=== PATIENT | male | born 2000 | race Hispanic/Latino ===

== ENCOUNTER 2018-10-26 21:19 | Emergency (ER) | payer OTHER ==
[2018-10-26] MEDS ORDERED: BENZONATATE 100 MG CAPSULE PO ONE (22:51)
[2018-10-26] MEDS ORDERED: AZITHROMYCIN 250 MG TABLET PO ONE (22:51)
== END 2018-10-26 22:58 | disposition home or self-care (01) ==
LOC: EDH 21:19
DX: J20.9 Acute bronchitis, unspecified (principal); F32.9 Major depressive disorder, single episode, unspecified; F41.9 Anxiety disorder, unspecified
CPT/HCPCS: 71046

== ENCOUNTER 2024-01-26 13:29 | Emergency (ER) | payer SELFPAY ==
[~2024-01-26] VITALS: Ht 160 cm; Wt 74.8 kg
--- NOTE | 2024-01-26 13:37 | ERN ---
ED Note History of Present Illness Stated Complaint: SUICIDAL, LEFT ARM CUTTING Chief Complaint: Suicidal Ideation Time Seen by MD: 13:31 Dictation: PATIENT IS A 23-YEAR-OLD MALE HERE WITH HIS MOTHER WITH MULTIPLE SUPERFICIAL ABRASIONS TO HIS LEFT FOREARM ONSET 2 HOURS PRIOR TO ARRIVAL. PATIENT STATES I AM GOING THROUGH A LOT AND I FEEL LIKE I WANT TO BIKE CUTTING MY WRIST. MOTHER AND PATIENT BOTH STATE HE HAS A LONG HISTORY TO INCLUDE DEPRESSION BIPOLAR, HAS NOT BEEN ON THE MEDICATIONS FOR SEVERAL MONTHS AND GOES TO [facility]. PATIENT ALSO STATES HE IS A TYPE 2 DIABETIC HOWEVER STOPPED HIS METFORMIN 2-1/2 MONTHS AGO WHEN HE GOT LOCKED UP IN THE [facility]. Allergies: Coded Allergies: divalproex sodium (Unverified Allergy, Unknown, 01/26/24) Home Meds Active Scripts Metformin HCl (Metformin HCl) 1,000 Mg Tablet, 1 TAB PO BIDAC for 30 Days, #60 TAB 0 Refills Prov:G[facility] PRACTICE DIRECTOR 01/26/24 Past Medical History PSYCH History: anxiety, bipolar, depression RN Note Reviewed/Agreed w/PFSH: Yes Review of System Dictation CONSTITUTIONAL: NEGATIVE EXCEPT FOR HPI HEAD/FACE: NEGATIVE EXCEPT FOR HPI EENT: NEGATIVE EXCEPT FOR HPI RESPIRATORY: NEGATIVE EXCEPT FOR HPI GASTROINTESTINAL/ABDOMINAL: NEGATIVE EXCEPT FOR HPI GENITOURINARY: NEGATIVE EXCEPT FOR HPI MUSCULOSKELETAL: NEGATIVE EXCEPT FOR HPI INTEGUMENTARY: NEGATIVE EXCEPT FOR HPI SELF-INFLICTED ABRASIONS LEFT FOREARM NEUROLOGICAL/PSYCH: NEGATIVE EXCEPT FOR HPI SUICIDAL HEMATOLOGIC/LYMPHATIC: NEGATIVE EXCEPT FOR HPI ALL SYSTEMS NEGATIVE, EXCEPT NOTED ABOVE. 13 POINT REVIEW OF SYSTEMS ASSESSED AND ALL NEGATIVE EXCEPT FOR ABOVE. Initial Vital Sign VS Vital Signs Date Time Temp Pulse Resp B/P (MAP) Pulse Ox O2 Delivery O2 Flow Rate FiO2 01/26/24 13:34 98.8 112 20 124/83 99 01/26/24 15:02 Room Air* 0 21 Physical Exam Dictation VITAL SIGNS REVIEWED GENERAL APPEARANCE: ALERT, ORIENTED X 3,, WELL DEVELOPED, NOURISHED. FLAT AFFECT SUICIDAL HEAD AND FACE: NON-TRAUMATIC. EYES: PERRL, PINK CONJUNCTIVAS, EYELID NO TRAUMA, ANTERIOR CHAMBER WITH ARCUS SENILIS. EARS: PINNAS INTACT AND NO SIGNS OF TRAUMA OR ERYTHEMA EAR CANALS CLEAR AND NO DISCHARGE TM NO ERYTHEMA NOSE: NO DISCHARGE, NO BLEEDING. OROPHARYNX: MOUTH NORMAL, TONGUE PINK, PHARYNX CLEAR,NO ERYTHEMA, TONSILS NO EXUDATES, NO ABSCESSES NOTED, MUCOUS MEMBRANE MOIST NECK: SUPPLE, NON-TENDER, NO THYROMEGALY, NO MASSES, NO JVD, NO BRUITS BREAST:DEFERRED CHEST:NO TENDERNESS, NO CREPITUS, NO PARADOXICAL MOVEMENT, NO RETRACTIONS LUNGS:CLEAR, WELL-VENTILATED, SYMMETRIC, NO RALES, NO WHEEZING, NO RHONCHI, NO STRIDOR, GOOD BREATH SOUNDS BILATERALLY HEART: REGULAR RATE, REGULAR RHYTHM, NO MURMUR, NO GALLOPS VASCULAR: NO PERIPHERAL EDEMA, ABDOMEN: SOFT, POSITIVE BOWEL SOUNDS, NONDISTENDED, NO GUARDING, NONTENDER, NO REBOUND, NO MASSES NO HEPATOMEGALY, NO SPLENOMEGALY, NO VAUGHAN'S SIGN, NO HERNIAS. RECTAL: DEFERRED GENITAL: DEFERRED NEUROLOGICAL: NORMAL SPEECH, MOTOR FUNCTION INTACT, SENSORY FUNCTION INTACT MUSCULOSKELETAL: NECK NONTENDER, FULL RANGE OF MOTION, BACK NONTENDER, FULL RANGE OF MOTION, EXTREMITIES: NONTENDER, MULTIPLE SUPERFICIAL ABRASIONS TO LEFT FOREARM. MINIMAL BLEEDING NO REPAIR REQUIRED PATIENT STATES TETANUS SHOT IS UP TO DATE LYMPHATIC: DEFERRED Results (Laboratory/Radiology) Laboratory/Radiology Laboratory Tests Test 01/26/24 12:44 01/26/24 13:56 01/26/24 14:55 01/26/24 16:47 Urine Color LIGHT-YELLOW (YELLOW) Urine Appearance CLEAR (CLEAR) Urine pH 6.0 (5.0-8.0) Urine Specific [place] OVER (1.001-1.031) Urine Protein 20 mg/dL (NEGATIVE) H Urine Glucose (UA) >=1000 mg/dL (NEGATIVE) H Urine Ketones 100 mg/dL (NEGATIVE) H Urine Occult Blood NEGATIVE (NEGATIVE) Urine Nitrate NEGATIVE (NEGATIVE) Urine Bilirubin NEGATIVE mg/dL (NEGATIVE) Urine Urobilinogen 0.2 mg/dL (0.2-1.0) Urine Leukocyte Esterase 75 Eyal/uL (NEGATIVE) H Urine RBC 2-5 /HPF (0-1) H Urine WBC 6-10 /HPF (0-1) H Urine Squamous Epithelial Cells FEW /HPF (0-2) Urine Bacteria None /HPF (None Seen) Urine Opiates Screen NEGATIVE (NEGATIVE) Urine Barbiturates Screen NEGATIVE (NEGATIVE) Urine Phencyclidine Screen NEGATIVE (NEGATIVE) Urine Amphetamines Screen NEGATIVE (NEGATIVE) Urine Benzodiazepines Screen NEGATIVE (NEGATIVE) Urine Cocaine Screen NEGATIVE (NEGATIVE) Urine Marijuana (THC) Screen POSITIVE (NEGATIVE) H White Blood Count 8.1 K/uL (4.8-10.8) Red Blood Count 5.76 MIL/uL (4.50-6.20) Hemoglobin 16.7 g/dL (14.0-18.0) Hematocrit 47.4 % (42-54) Mean Corpuscular Volume 82.3 fL (79-99) Mean Corpuscular Hemoglobin 29.0 pg (27.0-33.0) Mean Corpuscular Hemoglobin Concent 35.2 g/dL (32.0-36.0) Red Cell Distribution Width 12.0 % (11.0-15.5) Platelet Count 305 K/uL (130-400) Mean Platelet Volume 9.7 fL (7.5-10.5) Immature Granulocyte % (Auto) 0.4 % (0-1) Neutrophils (%) (Auto) 71.7 % (40.0-77.0) Lymphocytes (%) (Auto) 23.1 % (21.0-51.0) Monocytes (%) (Auto) 3.6 % (3.0-13.0) Eosinophils (%) (Auto) 0.7 % (0.0-8.0) Basophils (%) (Auto) 0.5 % (0.0-5.0) Neutrophils # (Auto) 5.8 K/uL (1.8-7.7) Lymphocytes # (Auto) 1.9 K/uL (1.0-4.8) Monocytes # (Auto) 0.3 K/uL (0.1-1.0) Eosinophils # (Auto) 0.06 K/uL (0.00-0.70) Basophils # (Auto) 0.04 K/uL (0.00-0.20) Absolute Immature Granulocyte (auto 0.03 K/uL (0-1) Nucleated Red Blood Cells 0.0 % (0.0-0.19) Sodium Level 136 mmol/L (136-145) Potassium Level 3.8 mmol/L (3.5-5.1) Chloride Level 99 mmol/L (101-111) L Carbon Dioxide Level 25 mmol/L (21-32) Blood Urea Nitrogen 15 mg/dL (7-18) Creatinine 0.8 mg/dL (0.5-1.3) Glomerular Filtration Rate Calc 126 mL/min (>90) Random Glucose 381 mg/dL (70-105) H Total Calcium 9.2 mg/dL (8.5-10.1) Total Creatine Kinase 55 U/L (21-232) Salicylates Level < 2.8 mg/dL (2.8-20.0) L Acetaminophen Level < 1 mcg/mL (10-29) L Serum Alcohol 7 mg/dL (0-10) Whole Blood Glucose 420 MG/DL (70-110) *H 319 MG/DL (70-110) H Test 01/26/24 18:19 01/26/24 18:35 Whole Blood Glucose 229 MG/DL (70-110) H 182 MG/DL (70-110) H Labs Reviewed?: Yes ED Course ED Course Orders Procedure Category Date Status Time Drug Screen Urine LAB 01/26/24 Complete 13:33 Suicide Precautions CPOE 01/26/24 Transmitted 13:33 Cbc With Differential LAB 01/26/24 Complete 13:33 Alcohol, Blood LAB 01/26/24 Complete 13:33 Salicylate LAB 01/26/24 Complete 13:33 Acetaminophen LAB 01/26/24 Complete 13:33 Urinalysis Profile LAB 01/26/24 Complete 13:33 Creatine Kinase, Total LAB 01/26/24 Complete 13:33 Basic Metabolic Panel LAB 01/26/24 Complete 13:33 Neomy PHA 01/26/24 Complete Sulf/Bacitra/Polymyxin 14:00 Culture Urine MADELINE 01/26/24 In Process 14:06 Insulin Regular, PHA 01/26/24 Complete Human 3ml (Humulin R 15:00 0.9%Nacl 1000ml (Ns PHA 01/26/24 Complete 1000ml) 15:00 Insulin Regular, PHA 01/26/24 Complete Human 3ml (Humulin R 17:00 0.9%Nacl 1000ml (Ns PHA 01/26/24 Complete 1000ml) 17:00 Bedside Glucose CPOE 01/26/24 Transmitted Fingerstick 17:58 Current Medications Medications (Trade) Dose Ordered Sig/Terri Route PRN Reason Start Time Stop Time Status Last Admin Dose Admin Insulin Human Regular (humuLIN R 100 UNIT/ML 3ML) 8 unit ONCE ONCE IV 01/26/24 17:00 01/26/24 17:01 DC 01/26/24 17:21 Insulin Human Regular (humuLIN R 100 UNIT/ML 3ML) 12 unit ONCE ONCE IV 01/26/24 15:00 01/26/24 15:01 DC 01/26/24 14:58 Neomycin/ Polymyxin/ Bacitracin (Triple Antibiotic Ointment) 1 appl ONCE ONCE TP 01/26/24 14:00 01/26/24 14:01 DC 01/26/24 13:54 Sodium Chloride 1,000 ml @ 0 mls/hr ONCE ONCE IV 01/26/24 15:00 01/26/24 15:01 DC 01/26/24 15:00 Sodium Chloride 1,000 ml @ 0 mls/hr ONCE ONCE IV 01/26/24 17:00 01/26/24 17:01 DC 01/26/24 17:20 Vital Signs Date Time Temp Pulse Resp B/P (MAP) Pulse Ox O2 Delivery O2 Flow Rate FiO2 01/26/24 15:02 98.4 87 16 124/62 98 Room Air* 0 21 01/26/24 13:34 98.8 112 20 124/83 99 SIXTEEN 50, REPEAT BLOOD SUGAR AFTER FLUIDS AND 12 UNITS REGULAR INSULIN 319. WE WILL GIVE AN ADDITIONAL1 L NORMAL SALINE AND EIGHT MORE UNITS OF HUMULIN REGULAR INSULIN TO CONTROL BLOOD SUGAR. SEVENTEEN 30, PATIENT EVALUATED BY NNEKA AND DOES NOT MEET CRITERIA FOR INPATIENT TREATMENT. HE WILL BE FOLLOWED UP OUTPATIENT, HE WILL BE TREATED HERE ACUTELY FOR UNCONTROLLED DIABETES WE WILL BE PRESCRIBED METFORMIN WAS TAKEN IN THE PAST AND TOLD TO FOLLOW A DIABETIC DIET AND FOLLOW UP WITH [facility] OUTPATIENT. 8 30, PATIENT DOES NOT MEET CRITERIA FOR INPATIENT TREATMENT BLOOD SUGAR 229 AFTER TREATMENT WE WILL DISCHARGE PATIENT HOME WITH METFORMIN AND TOLD TO SEE HIS DOCTOR Medical Decision Making MDM MDM: DIFFERENTIAL DIAGNOSIS: SELF-HARM BEHAVIOR, SUICIDALITY, DEPRESSION/DRUG ABUSE/ELECTROLYTE IMBALANCE/DEHYDRATION/UNCONTROLLED DIABETES RATIONALE: TESTS CONSIDERED AND ORDERED SECONDARY TO SHARED DECISION MAKING INCLUDE: LABS PREVIOUS OUTSIDE RECORDS REVIEWED: OLD ER VISITS. REVIEWED RISK OF COMPLICATION AND/OR MORBIDITY OR MORTALITY OF PATIENT MANAGEMENT: NONE MEDICATIONS-PER MEDICATION RECONCILIATION SEE NURSE'S NOTES NEED FOR HOSPITALIZATION: PATIENT DOES NOT MEET CRITERIA FOR HOSPITALIZATION. DOES NOT MEET CRITERIA PERC [facility] WE WILL BE DISCHARGED HOME AFTER DIABETES MANAGED. NEED FOR EMERGENCY MAJOR/MINOR SURGERY: NO THERE ARE NO SOCIAL CONCERNS WITH THIS PATIENT. PRESCRIPTION DRUG MANAGEMENT METFORMIN PRESCRIPTIONS WILL INCLUDE SYMPTOMATIC CARE PATIENT'S PRIOR EXTERNAL MEDICAL RECORDS FROM OTHER ER VISITS WERE REVIEWED BY ME INDICATED. PRIOR TESTING AND RESULTS FROM PREVIOUS VISITS WERE REVIEWED. PRIOR TESTS WERE TAKEN INTO ACCOUNT WITH MEDICAL DECISION MAKING AND RESOURCE UTILIZATION, INDEPENDENT HISTORIAN/HISTORIANS WERE USED TO OBTAIN COMPLETE MEDICAL HISTORY. I INDEPENDENTLY INTERPRETED THE TEST THAT WERE PERFORMED, RESULTS WERE REVIEWED BY ME AND CONSIDERED FINDINGS ON RADIOLOGY IF ORDERED. MEDICAL MANAGEMENT AND EXAMINATION INTERPRETATION DISCUSSIONS WERE HAD BY ME WITH OTHER QUALIFIED HEALTHCARE PROFESSIONALS INDICATED FOR THE PATIENT'S CARE. DX & DISP Disposition: Discharge Departure Impression: Primary Impression: Self-harming behaviour Additional Impressions: Verbalizes suicidal thoughts, Uncontrolled diabetes mellitus, Dehydration, Marijuana use, Medically noncompliant Condition: Stable Scripts Metformin HCl (Metformin HCl) 1,000 Mg Tablet 1 TAB PO BIDAC for 30 Days, #60 TAB 0 Refills Prov: LUCI FRANKS NP 01/26/24 Additional Instructions: FOLLOW-UP WITH PRIMARY CARE PROVIDER IN 1 TO 2 DAYS. TAKE MEDICATIONS DIRECTED HERE IN THE EMERGENCY ROOM. OKAY TO CONTINUE HOME MEDICATIONS UNLESS OTHERWISE DISCUSSED DURING YOUR VISIT IN THE EMERGENCY ROOM TODAY. RETURN TO YOUR NEAREST EMERGENCY ROOM IF SYMPTOMS WORSEN OR IF THERE IS NO IMPROVEMENT. CALL 911 IF YOU NEED IMMEDIATE ASSISTANCE. TAKE TYLENOL OR MOTRIN [id number] NEEDED AND IF NO CONTRAINDICATIONS ARE PRESENT. INCREASE ORAL HYDRATION. A WOUND CULTURE OR URINE CULTURE WAS ORDERED HERE IN THE EMERGENCY ROOM DEPARTMENT PLEASE FOLLOW-UP WITH PRIMARY CARE PROVIDER AND ADVISE THEM TO GET REPEAT PORTS FROM OUR FACILITY. IF YOU HAD ANY KENDY WRAP/SPLINTS THAT WERE APPLIED HERE, PLEASE DO NOT REMOVE THEM UNTIL YOU SEE YOUR PRIMARY CARE OR SPECIALTY. FOLLOW UP WITH TR[facility] DIRECTED. APPLY TRIPLE ANTIBIOTIC OINTMENT/[id number] TIMES A DAY FOR FIVE DAYS TO THE ABRASIONS ON YOUR ARMS. TAKE METFORMIN DIRECTED TWICE A DAY AND SEE YOUR PRIMARY CARE DOCTOR FOR FOLLOW UP Referrals: SELF,REFERRAL (PCP) I have reviewed the case, and I agree with, Diagnosis and Plan LUCI FRANKS NP Jan 26, 2024 13:37 FRANCISCA WISDOM DO Jan 26, 2024 18:53
[2024-01-26] MEDS: NEOMY SULF/BACITRA/POLYMYXIN B 1 EACH PACKET TP ONE (13:54)
[2024-01-26 13:59] LABS: AMPHET/METH SCREEN,URINE NEGATIVE (NEGATIVE); BARBITURATE SCREEN, URINE NEGATIVE (NEGATIVE); BENZODIAZEPINES SCREEN,URINE NEGATIVE (NEGATIVE); CANNABINOID SCREEN,URINE POSITIVE (NEGATIVE); COCAINE SCREEN,URINE NEGATIVE (NEGATIVE); OPIATE SCREEN,URINE NEGATIVE (NEGATIVE); PHENCYCLIDINE SCREEN,URINE NEGATIVE (NEGATIVE)
[2024-01-26 14:02] LABS: APPEARANCE,URINE CLEAR (CLEAR); BILIRUBIN,URINE NEGATIVE (NEGATIVE); COLOR,URINE LIGHT-YELLOW (YELLOW); GLUCOSE, URINE (UA) >=1000 mg/dL (NEGATIVE); KETONES,URINE 100 mg/dL (NEGATIVE); LEUKOCYTE ESTERASE ,URINE 75 Leu/uL (NEGATIVE); NITRATE,URINE NEGATIVE (NEGATIVE); OCCULT BLOOD,URINE NEGATIVE (NEGATIVE); PROTEIN,URINE 20 mg/dL (NEGATIVE); UROBILINOGEN,URINE 0.2 mg/dL (0.2-1.0)
[2024-01-26 14:04] LABS: BASOPHILS # (AUTO) 0.04 K/uL (0.00-0.20); BASOPHILS % (AUTO) 0.5 % (0.0-5.0); EOSINOPHILS # (AUTO) 0.06 K/uL (0.00-0.70); EOSINOPHILS % (AUTO) 0.7 % (0.0-8.0); HEMATOCRIT 47.4 % (42-54); IMMATURE GRANULOCYTE ABSOLUTE 0.03 K/uL (0-1); LYMPHOCYTES # (AUTO) 1.9 K/uL (1.0-4.8); LYMPHOCYTES % (AUTO) 23.1 % (21.0-51.0); MEAN CORPUSCULAR HGB CONC 35.2 g/dL (32.0-36.0); MEAN CORPUSCULAR VOLUME 82.3 fL (79-99); MONOCYTES # (AUTO) 0.3 K/uL (0.1-1.0); MONOCYTES % (AUTO) 3.6 % (3.0-13.0); NEUTROPHILS # (AUTO) 5.8 K/uL (1.8-7.7); NEUTROPHILS % (AUTO) 71.7 % (40.0-77.0); PLATELET COUNT (AUTO) 305 K/uL (130-400); RED BLOOD CELL COUNT(AUTO) 5.76 MIL/uL (4.50-6.20); WHITE BLOOD COUNT (AUTO) 8.1 K/uL (4.8-10.8)
[2024-01-26 14:06] LABS: ADD UA MICROSCOPIC YES
[2024-01-26 14:09] LABS: CARBON DIOXIDE 25 mmol/L (21-32); CHLORIDE 99 mmol/L (101-111); CREATININE 0.8 mg/dL (0.5-1.3); GLOMERULAR FILTR. RATE CALC 126 mL/min (>90); GLUCOSE,RANDOM 381 mg/dL (70-105); POTASSIUM 3.8 mmol/L (3.5-5.1); SODIUM SERUM 136 mmol/L (136-145); UREA NITROGEN, BLOOD 15 mg/dL (7-18)
[2024-01-26 14:10] LABS: SQUAMOUS EPITHELIAL CELL,UR FEW /HPF (0-2)
[2024-01-26 14:14] LABS: ALCOHOL, BLOOD 7 mg/dL (0-10); CREATINE KINASE, TOTAL 55 U/L (21-232)
[2024-01-26 14:29] LABS: ACETAMINOPHEN < 1 mcg/mL (10-29); SALICYLATE < 2.8 mg/dL (2.8-20.0)
[2024-01-26] MEDS: INSULIN humuLIN R 100 UNIT/ML 3ML IV ONE ×2 (14:58→17:21)
[2024-01-26] MEDS: 0.9%NACL 1000ML 1,000 ML IV ONE ×2 (15:00→17:20)
--- NOTE | 2024-01-26 15:02 | NUR ---
SPOKE TO [facility], SHE WILL NOTIFY HAZMAT TECHNICIANDIRECTOR OF ENTERPRISE APPLICATIONS TO COME AND COMPLETE ASSESSMENT.
--- NOTE | 2024-01-26 16:01 | NUR ---
[place] [facility]ICAL SCREENER AT BEDSIDE
[2024-01-26] MEDS ORDERED: METF-446 PO (18:30)
[2024-01-26 18:58] VITALS: BP 122/65; PULSE 87; RESP 16; TEMP 98.4; O2SAT 99
== END 2024-01-26 19:01 | disposition home or self-care (01) ==
LOC: EDH 13:29
DX: S50.812A Abrasion of left forearm, initial encounter (principal); R45.851 Suicidal ideations; E11.65 Type 2 diabetes mellitus with hyperglycemia; E86.0 Dehydration; F31.9 Bipolar disorder, unspecified; F12.90 Cannabis use, unspecified, uncomplicated; Z79.84 Long term (current) use of oral hypoglycemic drugs; Z91.199 Patient's noncompliance with other medical treatment and regimen due to unspecified reason; X78.8XXA Intentional self-harm by other sharp object, initial encounter; Y93.89 Activity, other specified; Y92.89 Other specified places as the place of occurrence of the external cause; Y99.8 Other external cause status
CPT/HCPCS: 99284; 96374; 96361; 82550; 80048; 80305; 85025; 87086; 82948 ×4; 36415; 96376; 81001; J1815 ×2; G0481; J7030 ×2

== ENCOUNTER 2024-01-27 02:21 | Emergency (ER) | payer SELFPAY ==
[~2024-01-27] VITALS: Ht 160 cm; Wt 74.8 kg
[~2024-01-27 02:21] MED LIST: METF-446 PO
--- NOTE | 2024-01-27 02:53 | ERN ---
ED Note History of Present Illness Stated Complaint: SECTION 26 DUE TO S/I, SELF HARM BEHAVIOR Chief Complaint: Psych Evaluation Time Seen by MD: 02:38 Dictation: This is a 23-year-old male who was brought into the emergency room yesterday with complaints of suicidal ideations by family members. He was evaluated and noted to be very hyperglycemic and he was given IV fluids and insulin with improvement. Apparently patient has stopped taking his metformin 2-1/2 months ago when he was locked up in detention. He was cleared by [facility] and felt that he did not qualify for inpatient treatment and he was discharged to home with metformin to follow up with his doctors. He was brought back in by police department on section 26 due to severe suicidal ideations and self- harming behavior. Patient stated that who is going through a lot of hard times and his close friend by suicide. He cut himself with a razor blade throughout his left upper extremity neck and face to release pain. He stated that this was a razor blade old detention home trich. He reports feeling anxious and has suicidal ideations. Yesterday but prior to discharge had urine drug screen that was positive for THC but otherwise hyperglycemia was the only major thing. Temperature 97.9 pulse 107 respirations 20 blood pressure 130/85 with a pulse oximetry of 95% on room air His chronic medical problems include anxiety depression bipolar disorder diabetes mellitus type 2, polysubstance abuse including smoking cigarettes daily, cocaine and marijuana use. He is noncompliant with his metformin and lifestyle modifications Allergies: Coded Allergies: divalproex sodium (Unverified Allergy, Unknown, 01/26/24) Home Meds Active Scripts Metformin HCl (Metformin HCl) 1,000 Mg Tablet, 1 TAB PO BIDAC for 30 Days, #60 TAB 0 Refills Prov:LUCI FRANKS NP 01/26/24 Past Medical History Past Medical History: Anxiety, Bipolar, Depression, Diabetes-Type II Surgical History: Other Surgical History Other: BMT Family History: Negative Social History: Smokers, Drugs, ETOH RN Note Reviewed/Agreed w/PFSH: Yes Review of System Dictation Constitutional: Negative for fever,chills, and weight loss Eyes: Negative for injury, pain,redness, and discharge ENT: Negative for injury,pain or swelling Cardiovascular: Negative for chest pain, palpitations, and edema Respiratory: Negative for shortness of breath, cough, and wheezing, Abdomen/GI: Negative for abdominal pain, nausea, vomiting, diarrhea, and cons tipation Back: Negative for injury and pain : Negative for injury, bleeding and discharge MS/Extremity: Negative for injury and deformity Skin: Negative for rash, and discoloration Neuro: Negative for headache, weakness, numbness, tingling, and seizure Psych: Negative for suicide ideation, homicidal ideation, and hallucinations Initial Vital Sign VS Vital Signs Date Time Temp Pulse Resp B/P (MAP) Pulse Ox O2 Delivery O2 Flow Rate FiO2 01/27/24 02:22 97.9 107 20 130/85 100 Room Air 01/27/24 04:24 0 21 Physical Exam Dictation General: awake, alert, NAD Head/Face: Normocephalic, atraumatic Eyes: PERRL, EOMI, vision at baseline ENT: oral cavity clear, TMs clear, no signs of infection Neck: Trachea midline, supple, no nuchal rigidity Cardiovascular: RRR, normal S1/S2, No MRGs, no JVD Respiratory: CTAB, no respiratory distress, No rales or wheezes Abdomen: Soft, non-tender, non-distended, normal bowel sounds, no guarding or r ebound. Skin: Warm, dry, normal turgor, no rash MS/Extremity: Pulses equal, no cyanosis, neurovascular intact, FROM Neuro: COAx4, GCS 15, strength 5/5, CN 2-12 intact, normal cerebellar exam, normal gait, Psych: Normal behavior, mood, and affect normal Extremities-trace edema without any palpable cords, Homans sign is negative Results (Laboratory/Radiology) Laboratory/Radiology Laboratory Tests Test 01/27/24 02:45 01/27/24 02:50 01/27/24 05:16 01/27/24 06:03 White Blood Count 7.5 K/uL (4.8-10.8) Red Blood Count 4.95 MIL/uL (4.50-6.20) Hemoglobin 14.5 g/dL (14.0-18.0) Hematocrit 40.8 % (42-54) L Mean Corpuscular Volume 82.4 fL (79-99) Mean Corpuscular Hemoglobin 29.3 pg (27.0-33.0) Mean Corpuscular Hemoglobin Concent 35.5 g/dL (32.0-36.0) Red Cell Distribution Width 12.3 % (11.0-15.5) Platelet Count 272 K/uL (130-400) Mean Platelet Volume 9.7 fL (7.5-10.5) Immature Granulocyte % (Auto) 0.3 % (0-1) Neutrophils (%) (Auto) 55.9 % (40.0-77.0) Lymphocytes (%) (Auto) 37.7 % (21.0-51.0) Monocytes (%) (Auto) 5.0 % (3.0-13.0) Eosinophils (%) (Auto) 0.7 % (0.0-8.0) Basophils (%) (Auto) 0.4 % (0.0-5.0) Neutrophils # (Auto) 4.2 K/uL (1.8-7.7) Lymphocytes # (Auto) 2.8 K/uL (1.0-4.8) Monocytes # (Auto) 0.4 K/uL (0.1-1.0) Eosinophils # (Auto) 0.05 K/uL (0.00-0.70) Basophils # (Auto) 0.03 K/uL (0.00-0.20) Absolute Immature Granulocyte (auto 0.02 K/uL (0-1) Nucleated Red Blood Cells 0.0 % (0.0-0.19) Sodium Level 140 mmol/L (136-145) Potassium Level 3.6 mmol/L (3.5-5.1) Chloride Level 104 mmol/L (101-111) Carbon Dioxide Level 28 mmol/L (21-32) Blood Urea Nitrogen 14 mg/dL (7-18) Creatinine 0.8 mg/dL (0.5-1.3) Glomerular Filtration Rate Calc 126 mL/min (>90) Random Glucose 421 mg/dL (70-105) *H Total Calcium 8.7 mg/dL (8.5-10.1) Salicylates Level < 2.8 mg/dL (2.8-20.0) L Acetaminophen Level 25 mcg/mL (10-29) # Serum Alcohol < 3 mg/dL (0-10) Urine Color LIGHT-YELLOW (YELLOW) Urine Appearance CLEAR (CLEAR) Urine pH 5.5 (5.0-8.0) Urine Specific [place] 1.047 (1.001-1.031) Urine Protein NEGATIVE mg/dL (NEGATIVE) Urine Glucose (UA) >=1000 mg/dL (NEGATIVE) H Urine Ketones NEGATIVE mg/dL (NEGATIVE) Urine Occult Blood +- (TRACE) (NEGATIVE) H Urine Nitrate NEGATIVE (NEGATIVE) Urine Bilirubin NEGATIVE mg/dL (NEGATIVE) Urine Urobilinogen 0.2 mg/dL (0.2-1.0) Urine Leukocyte Esterase 500 Eyal/uL (NEGATIVE) H Urine RBC 11-25 /HPF (0-1) H Urine WBC 26-50 /HPF (0-1) H Urine Squamous Epithelial Cells FEW /HPF (0-2) Urine Bacteria None /HPF (None Seen) Urine Opiates Screen NEGATIVE (NEGATIVE) Urine Barbiturates Screen NEGATIVE (NEGATIVE) Urine Phencyclidine Screen NEGATIVE (NEGATIVE) Urine Amphetamines Screen NEGATIVE (NEGATIVE) Urine Benzodiazepines Screen NEGATIVE (NEGATIVE) Urine Cocaine Screen NEGATIVE (NEGATIVE) Urine Marijuana (THC) Screen POSITIVE (NEGATIVE) H Whole Blood Glucose 369 MG/DL (70-110) #H 154 MG/DL (70-110) #H Labs Reviewed?: Yes ED Course ED Course Orders Procedure Category Date Status Time Cbc With Differential LAB 01/27/24 Complete 02:25 Basic Metabolic Panel LAB 01/27/24 Complete 02:25 Alcohol, Blood LAB 01/27/24 Complete 02:25 Acetaminophen LAB 01/27/24 Complete 02:25 Salicylate LAB 01/27/24 Complete 02:25 Urinalysis Profile LAB 01/27/24 Complete 02:25 Drug Screen Urine LAB 01/27/24 Complete 02:25 0.9%Nacl 1000ml (Ns PHA 01/27/24 Complete 1000ml) 04:00 Ceftriaxone 1g Vial PHA 01/27/24 Complete (Rocephine 1g Inj) 04:00 Insulin Regular, PHA 01/27/24 Complete Human 3ml (Humulin R 05:30 0.9%Nacl 1000ml (Ns PHA 01/27/24 Complete 1000ml) 05:30 Current Medications Medications (Trade) Dose Ordered Sig/Terri Route PRN Reason Start Time Stop Time Status Last Admin Dose Admin Ceftriaxone Sodium (ROCEphine 1G INJ) 1 gm ONCE ONCE IVPB 01/27/24 04:00 01/27/24 04:01 DC 01/27/24 03:51 Insulin Human Regular (humuLIN R 100 UNIT/ML 3ML) 10 unit ONCE ONCE IV 01/27/24 05:30 01/27/24 05:31 DC 01/27/24 05:28 Sodium Chloride 1,000 ml @ 0 mls/hr ONCE ONCE IV 01/27/24 04:00 01/27/24 04:01 DC 01/27/24 03:51 Sodium Chloride 1,000 ml @ 0 mls/hr Q0M ONCE IV 01/27/24 05:30 01/27/24 05:31 DC 01/27/24 05:27 Vital Signs Date Time Temp Pulse Resp B/P (MAP) Pulse Ox O2 Delivery O2 Flow Rate FiO2 01/27/24 08:26 98.4 90 18 126/92 99 Room Air* 0 21 01/27/24 04:24 88 18 128/74 98 Room Air* 0 21 01/27/24 02:22 97.9 107 20 130/85 100 Room Air We will perform diagnostic labs, advanced imaging and administer medications according to the patient's complaint. Once the results are available, will review and personally interpreted the labs to rule out any acute life- threatening emergency the trach require immediate intervention and treatment. I will then re-evaluate the patient after treatment and diagnostic exams have return to determine whether the patient requires any further testing, can safely be discharged home or need further admission to hospital for additional treatment and evaluation. Labs reviewed CBC within normal limits BNP 7 showed a sugar of 421. Urinalysis was significant for very high leuko esterase and too numerous to count white cells and RBCs. Patient has been initiated on IV fluids. Optimize glycemic control. Empiric antibiotic therapy was also initiated. 4:59 a.m. patient is resting comfortably Medical Decision Making MDM MDM: DIFFERENTIAL DIAGNOSIS: SUICIDAL IDEATION, PSYCHIATRIC ILLNESS, RATIONALE: TESTS CONSIDERED AND ORDERED SECONDARY TO SHARED DECISION MAKING INCLUDE: PREVIOUS OUTSIDE RECORDS REVIEWED: OLD ER VISITS. RISK OF COMPLICATION AND/OR MORBIDITY OR MORTALITY OF PATIENT MANAGEMENT: NONE MEDICATIONS-PER MEDICATION RECONCILIATION NEED FOR HOSPITALIZATION: PATIENT DOES MEET CRITERIA FOR HOSPITALIZATION. NEED FOR EMERGENCY MAJOR/MINOR SURGERY: NO THERE ARE NO SOCIAL CONCERNS WITH THIS PATIENT. PRESCRIPTION DRUG MANAGEMENT PRESCRIPTIONS WILL INCLUDE SYMPTOMATIC CARE PATIENT'S PRIOR EXTERNAL MEDICAL RECORDS FROM OTHER ER VISITS WERE REVIEWED BY ME INDICATED. PRIOR TESTING AND RESULTS FROM PREVIOUS VISITS WERE REVIEWED. PRIOR TESTS WERE TAKEN INTO ACCOUNT WITH MEDICAL DECISION MAKING AND RESOURCE UTILIZATION, INDEPENDENT HISTORIAN/HISTORIANS WERE USED TO OBTAIN COMPLETE MEDICAL HISTORY. I INDEPENDENTLY INTERPRETED THE TEST THAT WERE PERFORMED, RESULTS WERE REVIEWED BY ME AND CONSIDERED FINDINGS ON RADIOLOGY IF ORDERED. MEDICAL MANAGEMENT AND EXAMINATION INTERPRETATION DISCUSSIONS WERE HAD BY ME WITH OTHER QUALIFIED HEALTHCARE PROFESSIONALS INDICATED FOR THE PATIENT'S CARE. PATIENT WILL BE DISCHARGED AND TRANSFERRED TO [facility] UNDER THE CARE OF . Problem List Problem List: (1) Self-harming behaviour (2) Verbalizes suicidal thoughts (3) Marijuana use (4) Medically noncompliant (5) Uncontrolled diabetes mellitus (6) Acute cystitis (7) Involuntary commitment DX & DISP Disposition: Discharge Departure Impression: Primary Impression: Self-harming behaviour Additional Impressions: Verbalizes suicidal thoughts, Marijuana use, Uncontrolled diabetes mellitus, Medically noncompliant, Involuntary commitme nt, Acute cystitis Condition: Stable Referrals: SELF,REFERRAL (PCP) Time of Disposition: 10:32 ALISHA LOCKE MD Jan 27, 2024 02:53 FLEX SIFUENTES MD Jan 27, 2024 10:33
[2024-01-27 02:55] LABS: BASOPHILS # (AUTO) 0.03 K/uL (0.00-0.20); BASOPHILS % (AUTO) 0.4 % (0.0-5.0); EOSINOPHILS # (AUTO) 0.05 K/uL (0.00-0.70); EOSINOPHILS % (AUTO) 0.7 % (0.0-8.0); HEMATOCRIT 40.8 % (42-54); IMMATURE GRANULOCYTE ABSOLUTE 0.02 K/uL (0-1); LYMPHOCYTES # (AUTO) 2.8 K/uL (1.0-4.8); LYMPHOCYTES % (AUTO) 37.7 % (21.0-51.0); MEAN CORPUSCULAR HEMOGLOBIN 29.3 pg (27.0-33.0); MEAN CORPUSCULAR HGB CONC 35.5 g/dL (32.0-36.0); MEAN CORPUSCULAR VOLUME 82.4 fL (79-99); MONOCYTES # (AUTO) 0.4 K/uL (0.1-1.0); NEUTROPHILS # (AUTO) 4.2 K/uL (1.8-7.7); NEUTROPHILS % (AUTO) 55.9 % (40.0-77.0); PLATELET COUNT (AUTO) 272 K/uL (130-400); RED BLOOD CELL COUNT(AUTO) 4.95 MIL/uL (4.50-6.20); RED CELL DISTRIBUTION WIDTH 12.3 % (11.0-15.5); WHITE BLOOD COUNT (AUTO) 7.5 K/uL (4.8-10.8)
[2024-01-27 03:06] LABS: APPEARANCE,URINE CLEAR (CLEAR); BILIRUBIN,URINE NEGATIVE (NEGATIVE); COLOR,URINE LIGHT-YELLOW (YELLOW); GLUCOSE, URINE (UA) >=1000 mg/dL (NEGATIVE); KETONES,URINE NEGATIVE (NEGATIVE); LEUKOCYTE ESTERASE ,URINE 500 Leu/uL (NEGATIVE); NITRATE,URINE NEGATIVE (NEGATIVE); PH,URINE 5.5 (5.0-8.0); PROTEIN,URINE NEGATIVE (NEGATIVE); UROBILINOGEN,URINE 0.2 mg/dL (0.2-1.0)
[2024-01-27 03:07] LABS: ADD UA MICROSCOPIC YES
[2024-01-27 03:08] LABS: ACETAMINOPHEN 25 mcg/mL (10-29); ALCOHOL, BLOOD < 3 mg/dL (0-10); CARBON DIOXIDE 28 mmol/L (21-32); CHLORIDE 104 mmol/L (101-111); CREATININE 0.8 mg/dL (0.5-1.3); GLOMERULAR FILTR. RATE CALC 126 mL/min (>90); POTASSIUM 3.6 mmol/L (3.5-5.1); SODIUM SERUM 140 mmol/L (136-145); UREA NITROGEN, BLOOD 14 mg/dL (7-18)
[2024-01-27 03:08] LABS: SQUAMOUS EPITHELIAL CELL,UR FEW /HPF (0-2); WBC,URINE 26-50 /HPF (0-1)
[2024-01-27 03:09] LABS: AMPHET/METH SCREEN,URINE NEGATIVE (NEGATIVE); BARBITURATE SCREEN, URINE NEGATIVE (NEGATIVE); BENZODIAZEPINES SCREEN,URINE NEGATIVE (NEGATIVE); CANNABINOID SCREEN,URINE POSITIVE (NEGATIVE); COCAINE SCREEN,URINE NEGATIVE (NEGATIVE); OPIATE SCREEN,URINE NEGATIVE (NEGATIVE); PHENCYCLIDINE SCREEN,URINE NEGATIVE (NEGATIVE)
[2024-01-27 03:26] LABS: GLUCOSE,RANDOM 421 mg/dL (70-105)
[2024-01-27 03:27] LABS: SALICYLATE < 2.8 mg/dL (2.8-20.0)
[2024-01-27] MEDS: 0.9%NACL 1000ML 1,000 ML IV ONE ×2 (03:51→05:27)
[2024-01-27] MEDS: cefTRIAXone 1G VIAL IVPB ONE (03:51)
[2024-01-27] MEDS: INSULIN humuLIN R 100 UNIT/ML 3ML IV ONE (05:28)
--- NOTE | 2024-01-27 06:17 | NUR ---
[place] [facility] CRISIS LINE CALLED AT THIS TIME. WAITING ON A SCREENER.
--- NOTE | 2024-01-27 08:29 | NUR ---
TROPICAL SCREENER AT BEDSIDE.
--- NOTE | 2024-01-27 09:00 | NUR ---
PER MAGNUS SALEH, PT MEETS CRITERIA FOR ADMISSION, WILL CALL BACK ONCE PT HAS PLACEMENT.
--- NOTE | 2024-01-27 10:39 | NUR ---
GAVE REPORT TO HENRY, NURSE AT [facility] IN REGARDS TO PT.
[2024-01-27 10:53] VITALS: BP 122/88; PULSE 88; RESP 18; TEMP 98.3; O2SAT 99
== END 2024-01-27 10:52 ==
LOC: EDH 02:21
DX: R45.851 Suicidal ideations (principal); E11.65 Type 2 diabetes mellitus with hyperglycemia; N30.00 Acute cystitis without hematuria; F17.200 Nicotine dependence, unspecified, uncomplicated; F31.9 Bipolar disorder, unspecified; Z91.199 Patient's noncompliance with other medical treatment and regimen due to unspecified reason; Z94.81 Bone marrow transplant status
CPT/HCPCS: 99285; 96374; 96375; 80048; 80305; 85025; 82948 ×2; 36415; 81001; J1815; G0481; J7030 ×2; J0696

== ENCOUNTER 2024-09-15 21:10 | Emergency (ER) | payer SELFPAY ==
[~2024-09-15] VITALS: Ht 160 cm; Wt 81.6 kg
--- NOTE | 2024-09-15 21:24 | NUR ---
PATIENT BELONGINGS AND WEAPONS COLLECTED BY SECURITY, PATIENT IN PAPER GOWN AND SHORTS, PATIENT VALUABLE LIST ON CHART.
--- NOTE | 2024-09-15 21:24 | NUR ---
TRIAGE EDIT TO CORRECT WEAPON FIELD
--- NOTE | 2024-09-15 21:41 | NUR ---
POISON CONTROL CONTACTED, SPOKE WITH FLORENCIO. RECOMMENDING CBC, BMP, TOXICOLOGY SCREEN, PO FLUIDS, PSYCHIATRIC EVALUATION. MAY TREAT NAUSEA WITH ANTIEMETICS. Addendum: 09/15/24 at 2143 by ABDIEL CASE # [id number]
[2024-09-15 21:42] LABS: AMPHET/METH SCREEN,URINE NEGATIVE (NEGATIVE); BARBITURATE SCREEN, URINE NEGATIVE (NEGATIVE); CANNABINOID SCREEN,URINE POSITIVE (NEGATIVE); COCAINE SCREEN,URINE POSITIVE (NEGATIVE)
[2024-09-15 21:46] LABS: IMMATURE GRANULOCYTE ABSOLUTE 0.03 K/uL (0-1); NUCLEATED RED BLOOD CELLS 0.0 % (0.0-0.19); PLATELET COUNT (AUTO) 335 K/uL (130-400); RED BLOOD CELL COUNT(AUTO) 5.50 MIL/uL (4.50-6.20); RED CELL DISTRIBUTION WIDTH 13.1 % (11.0-15.5); WHITE BLOOD COUNT (AUTO) 8.8 K/uL (4.8-10.8)
[2024-09-15 21:55] LABS: CREATININE 1.2 mg/dL (0.5-1.3); GLOMERULAR FILTR. RATE CALC 86 mL/min (>90); GLUCOSE,RANDOM 239 mg/dL (70-105); SODIUM SERUM 144 mmol/L (136-145); UREA NITROGEN, BLOOD 9 mg/dL (7-18)
[2024-09-15 22:00] LABS: ALCOHOL, BLOOD < 3 mg/dL (0-10)
--- NOTE | 2024-09-15 22:00 | NUR ---
patient provided juice, jello and applesauce, no burning to throat, no difficulty swallowing noted
--- NOTE | 2024-09-15 22:22 | NUR ---
NNEKA STEPHENSON CONTACTED TO INITIATE SCREENING
--- NOTE | 2024-09-15 23:21 | NUR ---
SCREENER AT BEDSIDE
--- NOTE | 2024-09-16 02:00 | NUR ---
patient provided warm meal
--- NOTE | 2024-09-16 02:02 | NUR ---
SPOKE WITH HUAN SERVICE DISPATCHER AT [facility]. REQUESTING WE COVER HIS POTASSIUM (3.3) AND BRING HIS BLOOD GLUCOSE TO BELOW 200. GARRICK HAAS MADE AWARE AND WILL PLACE ORDERS.
--- NOTE | 2024-09-16 02:24 | NUR ---
[facility] [place] SCREENER ADVISES PATIENT HAS BEEN ACCEPTED TO [facility]. TRANSPORTATION BY [facility] OFFICER AFTER 7 AM
[2024-09-16] MEDS: 0.9%NACL 1000ML 1,000 ML IV ONE (02:34)
--- NOTE | 2024-09-16 02:41 | NUR ---
ACCEPTANCE SPOKE WITH HUAN AT [facility], PATIENT IS ACCEPTED AFTER 0700, ACCEPTING PHYSICIAN IS DR TIMMY SHANNON, AOC IS SAMANTA SANCHEZ.
--- NOTE | 2024-09-16 02:50 | ERN ---
General Chief Complaint: Suicidal Ideation Stated Complaint: SI, LACERATIONS TO LEFT ARM, DRANK BLEACH Time Seen by MD: 21:30 Time Seen by Midlevel: 21:30 Source: patient History of Present Illness Initial Comments Patient presents to the emergency department complaining of suicide ideation. Allergies: Coded Allergies: divalproex sodium (Unverified Allergy, Unknown, 01/26/24) Home Meds Active Scripts Metformin HCl (Metformin HCl) 1,000 Mg Tablet, 1 TAB PO BIDAC for 30 Days, #60 TAB 0 Refills Prov:LUCI FRANKS [employer] 01/26/24 Past Medical History Past Medical History: Anxiety, Bipolar, Depression, Diabetes-Type II Past Surgical History: Other Surgical History Other: BMT, LEFT HAND, RT FACE Family History Family History: Negative Social History Social History: Smokers, Drugs, ETOH ROS Dictation CONSTITUTIONAL: Negative except for HPI HEAD/FACE: Negative except for HPI EENT: Negative except for HPI RESPIRATORY: Negative except for HPI GASTROINTESTINAL/ABDOMINAL: Negative except for HPI GENITOURINARY: Negative except for HPI MUSCULOSKELETAL: Negative except for HPI INTEGUMENTARY: Negative except for HPI NEUROLOGICAL/PSYCH: Negative except for HPI HEMATOLOGIC/LYMPHATIC: Negative except for HPI All Systems Negative, Except as noted above. 13 point review of systems assessed and all negative except for above. Physical Exam Physical Exam Dictation Vital Signs reviewed General Appearance: Alert, oriented x 3, no acute distress, well developed, nourished. Head and Face: non-traumatic. Eyes: PERRL, pink conjunctivas, eyelid no trauma, anterior chamber with arcus senilis. Ears: Pinnas intact and no signs of trauma or erythema ear canals clear and no discharge TM no erythema Nose: No discharge, no bleeding. Oropharynx: Mouth normal, tongue pink, pharynx clear,no erythema, tonsils no exudates, no abscesses noted, mucous membrane moist Neck: Supple, non-tender, no thyromegaly, no masses, no JVD, no bruits Breast:Deferred Chest:No tenderness, no crepitus, no paradoxical movement, no retractions Lungs:Clear, well-ventilated, symmetric, no rales, no wheezing, no rhonchi, no stridor, good breath sounds bilaterally Heart: Regular rate, regular rhythm, no murmur, no gallops Vascular: no peripheral edema, Abdomen: Soft, positive bowel sounds, nondistended, no guarding, nontender, no rebound, no masses no hepatomegaly, no splenomegaly, no Sorensen's sign, no hernias. Rectal: Deferred Genital: Deferred Neurological: Normal speech, motor function intact, sensory function intact Musculoskeletal: Neck nontender, full range of motion, back nontender, full range of motion, Extremities: nontender, full range of motion Skin: Color pink, dry, no turgor, no rash, no lacerations, no abrasions, no contusions. Lymphatic: Deferred Results Laboratory and Microbiology Lab and Micro Result Laboratory Tests Test 09/15/24 21:17 09/15/24 21:34 Urine Opiates Screen NEGATIVE (NEGATIVE) Urine Barbiturates Screen NEGATIVE (NEGATIVE) Urine Phencyclidine Screen NEGATIVE (NEGATIVE) Urine Amphetamines Screen NEGATIVE (NEGATIVE) Urine Benzodiazepines Screen NEGATIVE (NEGATIVE) Urine Cocaine Screen POSITIVE (NEGATIVE) H Urine Marijuana (THC) Screen POSITIVE (NEGATIVE) H White Blood Count 8.8 K/uL (4.8-10.8) Red Blood Count 5.50 MIL/uL (4.50-6.20) Hemoglobin 16.3 g/dL (14.0-18.0) Hematocrit 47.5 % (42-54) Mean Corpuscular Volume 86.4 fL (79-99) Mean Corpuscular Hemoglobin 29.6 pg (27.0-33.0) Mean Corpuscular Hemoglobin Concent 34.3 g/dL (32.0-36.0) Red Cell Distribution Width 13.1 % (11.0-15.5) Platelet Count 335 K/uL (130-400) Mean Platelet Volume 9.8 fL (7.5-10.5) Immature Granulocyte % (Auto) 0.3 % (0-1) Neutrophils (%) (Auto) 66.6 % (40.0-77.0) Lymphocytes (%) (Auto) 28.2 % (21.0-51.0) Monocytes (%) (Auto) 3.8 % (3.0-13.0) Eosinophils (%) (Auto) 0.5 % (0.0-8.0) Basophils (%) (Auto) 0.6 % (0.0-5.0) Neutrophils # (Auto) 5.9 K/uL (1.8-7.7) Lymphocytes # (Auto) 2.5 K/uL (1.0-4.8) Monocytes # (Auto) 0.3 K/uL (0.1-1.0) Eosinophils # (Auto) 0.04 K/uL (0.00-0.70) Basophils # (Auto) 0.05 K/uL (0.00-0.20) Absolute Immature Granulocyte (auto 0.03 K/uL (0-1) Nucleated Red Blood Cells 0.0 % (0.0-0.19) Sodium Level 144 mmol/L (136-145) Potassium Level 3.3 mmol/L (3.5-5.1) L Chloride Level 105 mmol/L (101-111) Carbon Dioxide Level 21 mmol/L (21-32) Blood Urea Nitrogen 9 mg/dL (7-18) Creatinine 1.2 mg/dL (0.5-1.3) Glomerular Filtration Rate Calc 86 mL/min (>90) Random Glucose 239 mg/dL (70-105) H Total Calcium 10.0 mg/dL (8.5-10.1) Salicylates Level 3.2 mg/dL (2.8-20.0) Acetaminophen Level < 1 mcg/mL (10-29) L Serum Alcohol < 3 mg/dL (0-10) Labs Reviewed?: Yes [facility] Patient care transition to Dr. Maradiaga at 3AM Patient has been medically cleared and [facility] has agreed to admit the patient to their inpatient psychiatric [facility]. ED Course Orders Procedure Category Date Status Time Cbc With Differential LAB 09/15/24 Complete 21:14 Basic Metabolic Panel LAB 09/15/24 Complete 21:14 Alcohol, Blood LAB 09/15/24 Complete 21:14 Salicylate LAB 09/15/24 Complete 21:14 Acetaminophen LAB 09/15/24 Complete 21:14 Drug Screen Urine LAB 09/15/24 Complete 21:14 Potassium Bicarb/Cit PHA 09/16/24 Complete Ac 25meq (K-Lyte Ta 02:30 0.9%Nacl 1000ml (Ns PHA 09/16/24 Complete 1000ml) 02:30 Current Medications Medications (Trade) Dose Ordered Sig/Terri Route PRN Reason Start Time Stop Time Status Last Admin Dose Admin Potassium Bicarbonate (K-Lyte Tablet Eff 25 Meq Tablet.eff) 50 meq ONCE ONCE PO 09/16/24 02:30 09/16/24 02:31 DC 09/16/24 02:34 Sodium Chloride 1,000 ml @ 0 mls/hr ONCE ONCE IV 09/16/24 02:30 09/16/24 02:31 DC 09/16/24 02:34 Vital Signs Date Time Temp Pulse Resp B/P (MAP) Pulse Ox O2 Delivery O2 Flow Rate FiO2 09/16/24 00:02 97.7 106 18 132/84 100 Room Air* 0 21 09/15/24 21:12 97.9 113 20 136/88 100 Room Air DX & DISP Disposition: Transfer Departure Impression: Primary Impression: Suicide ideation Additional Impressions: Hyperglycemia, Hypokalemia Condition: Stable Referrals: SELF,REFERRAL (PCP) URI DIAL Sep 16, 2024 02:50 SILVANA MARADIAGA MD Sep 16, 2024 05:24
--- NOTE | 2024-09-16 08:16 | NUR ---
CHANCE FROM [facility] CALLED AND SAID SHE WILL BE SENDING OVER TRANSPORTATION.
[2024-09-16 09:45] VITALS: BP 139/87; PULSE 77; RESP 18; TEMP 97.9; O2SAT 99
== END 2024-09-16 09:35 ==
LOC: EDH 21:10
DX: R45.851 Suicidal ideations (principal); E11.65 Type 2 diabetes mellitus with hyperglycemia; E87.6 Hypokalemia; F17.200 Nicotine dependence, unspecified, uncomplicated; F31.9 Bipolar disorder, unspecified; Z94.81 Bone marrow transplant status; Z79.899 Other long term (current) drug therapy
CPT/HCPCS: 99285; 80048; 80305; 85025; 82948; 36415; G0481; J7030